=== PATIENT | male | born 1980 | race Caucasian/White ===

== ENCOUNTER 2018-10-12 16:59 | Emergency (ER) | payer MEDICAID ==
[~2018-10-12] VITALS: Ht 180.3 cm; Wt 107.0 kg
[2018-10-12 17:19] VITALS: BP 159/96
== END 2018-10-12 18:24 | disposition left against medical advice (07) ==
LOC: ER 16:59
DX: M25.561 Pain in right knee (principal); Z53.21 Procedure and treatment not carried out due to patient leaving prior to being seen by health care provider

== ENCOUNTER 2019-07-05 16:13 | Emergency (ER) | payer MEDICAID ==
[~2019-07-05] VITALS: Ht 180.3 cm; Wt 105.0 kg
[2019-07-05 16:22] VITALS: BP 130/83
== END 2019-07-05 17:17 | disposition left against medical advice (07) ==
LOC: ER 16:14
DX: J02.9 Acute pharyngitis, unspecified (principal); Z53.21 Procedure and treatment not carried out due to patient leaving prior to being seen by health care provider

== ENCOUNTER → 2022-02-25 | Emergency (ER) | payer MEDICAID ==
[~2022-02-25] VITALS: Ht 180.3 cm; Wt 95.5 kg
[~2022-02-25] MED LIST: CYCL-1 PO; IBUP-1986 PO; PRED20TA PO
[2022-02-25 19:41] VITALS: BP 158/108
--- NOTE | 2022-02-25 21:29 | NUR ---
not in lobby, pt seen leaving the er by staff
== END | disposition left against medical advice (07) ==
LOC: ER 19:37
DX: M54.50 Low back pain, unspecified (principal); M79.606 Pain in leg, unspecified; Z53.21 Procedure and treatment not carried out due to patient leaving prior to being seen by health care provider

== ENCOUNTER 2022-02-26 16:35 | Emergency (ER) | payer MEDICAID ==
[~2022-02-26] VITALS: Ht 180.3 cm; Wt 95.5 kg
[2022-02-26 16:52] VITALS: BP 165/112
[2022-02-26] MEDS ORDERED: ketorolac trometh inj. 60 MG/2 ML VIAL IM ONE (18:30)
[2022-02-26] MEDS ORDERED: orphenadrine citrate 60mg/2ml inj. IM ONE (18:30)
[2022-02-26] MEDS ORDERED: IBUP-1986 PO (18:32)
[2022-02-26] MEDS ORDERED: CYCL-1 PO (18:32)
[2022-02-26] MEDS ORDERED: PRED20TA PO (18:32)
== END 2022-02-26 18:58 | disposition home or self-care (01) ==
LOC: ER 16:37
DX: S39.012A Strain of muscle, fascia and tendon of lower back, initial encounter (principal); X58.XXXA Exposure to other specified factors, initial encounter; Y93.89 Activity, other specified; Y92.89 Other specified places as the place of occurrence of the external cause; Y99.8 Other external cause status
CPT/HCPCS: 96372; 99284; J1885; J2360

== ENCOUNTER 2022-11-08 12:31 | Emergency (ER) | payer MEDICAID ==
[~2022-11-08] VITALS: Ht 177.8 cm; Wt 97.6 kg
[~2022-11-08 12:31] MED LIST changes: -PRED20TA PO
[2022-11-08 12:45] VITALS: BP 183/116
[2022-11-08] MEDS ORDERED: METH4TAB3 PO (15:23)
[2022-11-08] MEDS ORDERED: CYCL-1 PO (15:23)
[2022-11-08] MEDS ORDERED: IBUP-1984 PO (15:23)
== END 2022-11-08 15:36 | disposition home or self-care (01) ==
LOC: ER 12:32
DX: S39.012A Strain of muscle, fascia and tendon of lower back, initial encounter (principal); Z79.899 Other long term (current) drug therapy; M62.830 Muscle spasm of back; X50.1XXA Overexertion from prolonged static or awkward postures, initial encounter; Y93.89 Activity, other specified; Y92.89 Other specified places as the place of occurrence of the external cause; Y99.8 Other external cause status
CPT/HCPCS: 99283